=== PATIENT | female | born 1955 | race Caucasian/White ===

== ENCOUNTER 2020-10-10 09:50 | Outpatient (CLI) | payer BC, SELFPAY ==
--- NOTE | ~2020-10-10 | DEXA_ITS ---
Bone Density Report Name: Lee Ann Cruz Age: 65 Sex: Female Ethnicity: White Date of : 1955 Indication: postmenopausal; height loss; hysterectomy; Referring Provider: Jess Lucas Study: Bone densitometry was performed. Exam Date: October 10, 2020 Accession number: [id number] Bone Density: Region BMD T-score Z-score Classification AP Spine (L1-L4) 0.996 -0.5 1.4 Normal Femoral Neck (Left) 0.703 -1.3 0.3 Osteopenia Total Hip (Left) 0.811 -1.1 0.2 Osteopenia Total Hip Bilateral Avg 0.811 -1.1 0.2 Osteopenia Femoral Neck (Right) 0.751 -0.9 0.7 Normal Total Hip (Right) 0.809 -1.1 0.2 Osteopenia World Health Organization criteria for BMD impression classify patients as: Normal (T-score at or above -1.0), Osteopenia (T-score between -1.0 and -2.5), or Osteoporosis (T-score at or below -2.5). 10-year Fracture Risk(1): Major Osteoporotic Fracture 8.8% Hip Fracture 0.9% Reported Risk Factors: [place] (), Neck BMD=0.703, BMI=27.0 (1) FRAX(R) Version 3.08. Fracture probability calculated for an untreated patient. Fracture probability may be lower if the patient has received treatment. Previous Exams: Region Exam Age BMD T-score BMD Change BMD Change Date g/cm2 vs Baseline vs Previous AP Spine(L1-L4) 10/10/2020 65 0.996 -0.5 -0.071(-6.7%)# -0.017(-1.7%) 10/14/2016 61 1.013 -0.3 -0.054(-5.0%)# -0.054(-5.0%)# 01/17/2009 53 1.067 0.2 Total Hip(Left) 10/10/2020 65 0.811 -1.1 -0.038(-4.4%)# -0.022(-2.6%) 10/14/2016 61 0.833 -0.9 -0.016(-1.9%)# -0.016(-1.9%)# 01/17/2009 53 0.849 -0.8 Total Hip(Right) 10/10/2020 65 0.809 -1.1 0.012(1.5%)# -0.013(-1.6%) 10/14/2016 61 0.822 -1.0 0.025(3.1%)# 0.025(3.1%)# 01/17/2009 53 0.798 -1.2 *Denotes significance at 95% confidence level, LSC for AP Spine = 0.022 g/cm2, LSC for Total Hip = 0.027 g/cm2 Clinical Information Provided by Patient: Has the following medical conditions: Hysterectomy Patient maximum height was 65 Menopause Age: 39 No regular weight bearing exercise Does not regularly consume dairy products Drinks caffeinated beverages Onset of menses at age 13 Number of children 1 Impression: The patient has low bone mass, based on the Left Femoral Neck T-score. The patient has an estimated ten-year risk of hip fracture of 0.9% and an estimated ten-year risk of major fracture of 8.8%, based on the WHO FRAX algorithm. No significa
--- NOTE | ~2020-10-10 | MM_ITS ---
EXAMINATION: MM screening kuldeep BI w jose HISTORY: Screening TECHNIQUE: Craniocaudal and mediolateral oblique 3-D tomosynthesis images were obtained and synthetic 2-D images were generated. CAD analysis was submitted and interpreted. COMPARISON: Comparison to multiple prior studies sequentially, with oldest reviewed study dated 06/10. BREAST PARENCHYMAL COMPOSITION: There are scattered areas of fibroglandular density. FINDINGS: There is no evidence of suspicious mass, calcification, or architectural distortion to sugg est malignancy in either breast. There has been no suspicious interval change. IMPRESSION: 1. No mammographic evidence of malignancy. 2. Recommend routine screening mammography in one year. BI-RADS Category 1: Negative Reviewed, dictated and finalized at location A. TAL PROJECT COORDINATOR
== END 2020-10-10 09:51 | disposition home or self-care (01) ==
LOC: ANHIMG 09:53
PROVIDERS: Family Provider Hospitalist; PCP Family Medicine; Visit Provider Physician Assistant
DX: M81.0 Age-related osteoporosis without current pathological fracture (principal); Z12.31 Encounter for screening mammogram for malignant neoplasm of breast; M85.852 Other specified disorders of bone density and structure, left thigh; M85.851 Other specified disorders of bone density and structure, right thigh
CPT/HCPCS: 77063; 77067; 77080

== ENCOUNTER → 2021-04-24 11:42 | Outpatient (CLI) | payer MEDICARE, SELFPAY ==
--- NOTE | ~2021-04-24 | XR_ITS ---
XR foot LT min 3V DATE: 04/24/2021 12:02 INDICATION: Left foot pain TECHNIQUE: 4 views COMPARISON: None FINDINGS: No fracture or dislocation, periosteal reaction or bone destruction. No calcaneal enthesopa thy. No erosive change. IMPRESSION: No significant abnormality Reviewed, dictated and finalized at location A. IMPRESSION: No significant abnormality
== END ==
PROVIDERS: PCP Physician Assistant; Visit Provider Physician Assistant
DX: M79.672 Pain in left foot (principal)
CPT/HCPCS: 73630

== ENCOUNTER → 2021-08-24 00:56 | Outpatient (CLI) | payer MEDICARE, SELFPAY ==
[2021-08-24 23:19] LABS: SARS-CoV-2 RNA PCR Negative
== END ==
PROVIDERS: PCP Physician Assistant; Visit Provider Family Medicine
DX: R05.9 Cough, unspecified (principal); R68.83 Chills (without fever); Z20.822 Contact with and (suspected) exposure to COVID-19
CPT/HCPCS: C9803; U0003; U0005

== ENCOUNTER → 2022-02-11 11:33 | Outpatient (CLI) | payer MEDICARE, SELFPAY ==
--- NOTE | ~2022-02-11 | XR_ITS ---
XR finger 1st LT min 2V DATE: 02/11/2022 12:21 INDICATION: Left thumb injury TECHNIQUE: 3 views COMPARISON: 03/24/2019 left hand FINDINGS: There is interval complete surgical resection of the trapezium since 03/24/2019. There is interval surgical fusion at the first metacarpophalangeal joint since 03/24/2019. There is osteopenia. No recent fracture or dislocation is detected. IMPRESSION: No fracture or dislocation Surgical resection of trapezium Surgical fusion at first metacarpophalangeal joint Reviewed, dictated and finalized at location A.
== END ==
PROVIDERS: PCP Family Medicine; Visit Provider Family Medicine
DX: M79.645 Pain in left finger(s) (principal); Z98.1 Arthrodesis status
CPT/HCPCS: 73140